=== PATIENT | female | born 1970 | race Caucasian/White ===

== ENCOUNTER → 2017-03-09 | Outpatient (CLI) | payer BC ==
--- NOTE | 2017-03-09 11:52 | REP ---
LEFT FINGERS, FOUR VIEWS: HISTORY: Middle finger ganglion. There is no acute fracture or dislocation. The joint spaces are normal in appearance. IMPRESSION: There is no acute fracture or dislocation. Signed by Easton Reddy MD 03/09/2017 12:10 P
[2017-03-09 14:32] LABS: MEAN CORPUSCULAR HEMOGLOBIN 32.1 pg (27.0-33.0); MEAN CORPUSCULAR HGB CONC 34.2 g/dl (32.0-36.5); MEAN CORPUSCULAR VOLUME 93.8 fl (80.0-96.0); RED CELL DISTRIBUTION WIDTH 12.3 % (11.5-14.5); WHITE BLOOD COUNT 6.3 K/mm3 (4.0-10.0)
[2017-03-09 14:45] LABS: ALBUMIN 3.7 GM/DL (3.2-5.2); ALKALINE PHOSPHATASE 104 U/L (45-117); ALT/SGPT 16 U/L (12-78); ANION GAP 7 MEQ/L (8-16); AST/SGOT 13 U/L (15-37); BILIRUBIN,TOTAL 0.5 MG/DL (0.2-1.0); BLOOD UREA NITROGEN 10 MG/DL (7-18); CALCIUM LEVEL 8.3 MG/DL (8.5-10.1); CARBON DIOXIDE LEVEL 30 MEQ/L (21-32); CHLORIDE LEVEL 103 MEQ/L (98-107); CHOLESTEROL LEVEL 183 MG/DL (<200); GLOMERULAR FILTRATION RATE > 60.0 (>58); GLUCOSE, FASTING 84 MG/DL (70-105); POTASSIUM SERUM 4.4 MEQ/L (3.5-5.1); SODIUM LEVEL 140 MEQ/L (136-145); TOTAL PROTEIN 7.8 GM/DL (6.4-8.2); TRIGLYCERIDES LEVEL 86 MG/DL (<150)
== END ==
LOC: M WUC 10:49
PROVIDERS: ATTEND Nurse Practitioner Family
DX: Z13.29 Encounter for screening for other suspected endocrine disorder (principal); Z13.220 Encounter for screening for lipoid disorders; Z13.0 Encounter for screening for diseases of the blood and blood-forming organs and certain disorders involving the immune mechanism; R68.89 Other general symptoms and signs; M67.442 Ganglion, left hand

== ENCOUNTER → 2017-07-12 | Outpatient (CLI) | payer BC | LOC: M WHC 08:13 | DX: Z12.31 Encounter for screening mammogram for malignant neoplasm of breast (principal) | CPT/HCPCS: G0202 ==

== ENCOUNTER → 2017-07-12 | Outpatient (REF) | payer BC | LOC: M SFHCWAGY 09:11 | DX: Z12.4 Encounter for screening for malignant neoplasm of cervix (principal) | CPT/HCPCS: G0123 ==

== ENCOUNTER → 2017-08-31 | Outpatient (CLI) | payer BC ==
[2017-09-02 11:12] LABS: TOTAL 25(OH) VITAMIN D 48.8 NG/ML (30.0-100.0)
== END ==
LOC: M WUC 11:23
DX: E55.9 Vitamin D deficiency, unspecified (principal)
CPT/HCPCS: 82306

== ENCOUNTER → 2017-12-05 | Outpatient (CLI) | payer BC ==
[2017-12-05 19:49] LABS: BASO % 0.3 % (0.0-1.0); EOS # 0.2 10^3/uL (0.0-0.50); EOS % 2.1 % (0.0-3.0); HEMATOCRIT 37.6 % (36.0-47.0); HEMOGLOBIN 12.6 g/dl (12.0-15.5); IMMATURE GRANULOCYTE % 0.2 % (0-3.0); LYMPH # 2.5 10^3/uL (1.5-4.5); LYMPH % 28.8 % (24.0-44.0); MEAN CORPUSCULAR HEMOGLOBIN 31.3 pg (27.0-33.0); MEAN CORPUSCULAR HGB CONC 33.5 g/dl (32.0-36.5); MEAN CORPUSCULAR VOLUME 93.5 fl (80.0-96.0); MONO # 0.6 10^3/uL (0.0-0.8); MONO % 7.2 % (0.0-5.0); NEUTROPHILS # 5.4 10^3/uL (1.8-7.7); NEUTROPHILS % 61.4 % (36.0-66.0); PLATELET COUNT, AUTOMATED 218 10^3/uL (150-450); RED BLOOD COUNT 4.02 10^6/uL (4.00-5.40); RED CELL DISTRIBUTION WIDTH 11.9 % (11.5-14.5); WHITE BLOOD COUNT 8.8 10^3/uL (4.0-10.0)
[2017-12-05 20:16] LABS: TOTAL 25(OH) VITAMIN D 84.5 NG/ML (30.0-100.0)
== END ==
LOC: M WUC 17:35
DX: R53.83 Other fatigue (principal)
CPT/HCPCS: 84443

== ENCOUNTER → 2018-04-25 | Outpatient (CLI) | payer BC ==
[~2018-04-25] MED LIST: LIDOCAINE 1% MDV 20ML VIAL As Ordered; TRIAMCINOLONE ACETONIDE SUSP 40 MG/ML VIAL (J3301) As Ordered
== END ==
LOC: M RADPRO 12:35
DX: S46.012A Strain of muscle(s) and tendon(s) of the rotator cuff of left shoulder, initial encounter (principal); Y92.89 Other specified places as the place of occurrence of the external cause; Y93.89 Activity, other specified; X58.XXXA Exposure to other specified factors, initial encounter; Y99.8 Other external cause status
CPT/HCPCS: 20550

== ENCOUNTER → 2018-07-18 | Outpatient (REF) | payer BC | LOC: M SFHCWAGY 09:21 | PROVIDERS: ATTEND Nurse Practitioner Women's Health | DX: Z12.4 Encounter for screening for malignant neoplasm of cervix (principal) ==

== ENCOUNTER → 2018-07-18 | Outpatient (CLI) | payer BC ==
--- NOTE | 2018-07-18 11:44 | REPMRS ---
Patient History The patient states she had a clinical breast exam in 08/02 No known family history of cancer. Benign lumpectomy of the left breast, 1999. Digital Woman Screen Mammo: July 18, 2018 - Exam #: [id number] Bilateral CC and MLO view(s) were taken. Technologist: Barb Shetty, Technologist Prior study comparison: July 12, 2017, digital woman screen mammo performed at [facility]. May 24, 2016, digital woman screen mammo performed at [facility]. February 04, 2015, digital woman screen mammo performed at [facility]. FINDINGS: The breast tissue is heterogeneously dense. This may lower the sensitivity of mammography. There is a moderate amount of heterogeneously dense fibroglandular tissue which is fairly symmetric. There is no interval development of dominant mass, architectural distortion, or clustered microcalcification typical of malignancy. There has been no change in the appearance of the mammogram from the prior studies. 3-D tomosynthesis shows no additional findings. Assessment: BI-RADS/ACR category 1 mammogram. Negative. Recommendation Routine screening mammogram of both breasts in 1 year (for women over age 40). This patient's Lifetime Breast Cancer RIsk is estimated at 8.5 %. This mammogram was interpreted with the aid of an FDA-approved computer-aided dectection system. Electronically Signed By: Natan Monroy MD 07/18/18 [id number]
== END ==
LOC: M WHC 09:06
PROVIDERS: ATTEND Nurse Practitioner Women's Health
DX: Z12.31 Encounter for screening mammogram for malignant neoplasm of breast (principal)

== ENCOUNTER → 2018-08-21 | Outpatient (REF) | payer BC | LOC: M LAB REF 12:00 | PROVIDERS: ATTEND Physician Assistant | DX: J00 Acute nasopharyngitis [common cold] (principal) ==

== ENCOUNTER → 2019-06-08 | Outpatient (CLI) | payer BC ==
--- NOTE | 2019-06-08 17:28 | REP ---
Clinical: Irregular menstrual cycles. Technique: Transabdominal pelvic ultrasound with color Doppler evaluation of the ovaries. Findings: Normal anteverted uterus measures 9.7 x 4.8 x 6.2 cm. Endometrial complex measures 12.0 mm thickness. No discrete uterine or endometrial abnormalities appreciated. The bilateral ovaries are normal in appearance and vascularity without torsion. Right ovary measures 4.4 x 1.9 x 3.5 cm (RI 0.54) and includes 2.9 cm presumed physiologic cyst. Left ovary measures 2.9 x 1.7 x 1.6 cm (RI 0.62). No pelvic free fluid or adnexal mass lesion. Bladder is unremarkable and measures approximately 10.1 x 5.9 x 8.7 cm. Impression: 1. Essentially normal examination. 2. A 2.9 cm cyst in the right ovary likely physiologic. Electronically Signed by Mitchell Galindo MD 06/08/2019 05:20 P
== END ==
LOC: M RAD 16:53
PROVIDERS: ATTEND Nurse Practitioner Women's Health
DX: N83.291 Other ovarian cyst, right side (principal); N92.6 Irregular menstruation, unspecified

== ENCOUNTER → 2019-07-20 | Outpatient (REF) | payer BC | LOC: M PLALAB 08:59 | PROVIDERS: ATTEND Nurse Practitioner Women's Health | DX: Z12.4 Encounter for screening for malignant neoplasm of cervix (principal) ==

== ENCOUNTER → 2019-07-20 | Outpatient (CLI) | payer BC ==
--- NOTE | 2019-07-20 10:12 | REPMRS ---
Patient History The patient states she had a clinical breast exam in 07/2019. No known family history of cancer. Benign lumpectomy of the left breast, 1999. No Hormone Replacement Therapy Digital Woman Screen Mammo: July 20, 2019 - Exam #: [id number] Bilateral CC and MLO view(s) were taken. Technologist: Damaris Mccarthy, Technologist Prior study comparison: July 18, 2018, bilateral digital woman screen mammo performed at [facility]. July 12, 2017, digital woman screen mammo performed at [facility]. May 24, 2016, digital woman screen mammo performed at [facility]. FINDINGS: The breast tissue is heterogeneously dense. This may lower the sensitivity of mammography. There is a moderate amount of heterogeneously dense fibroglandular tissue which is fairly symmetric. There is no interval development of dominant mass, architectural distortion, or grouped microcalcification typical of malignancy. There has been no change in the appearance of the mammogram from the prior studies. 3-D tomosynthesis shows no additional findings. Assessment: BI-RADS/ACR category 1 mammogram. Negative Mammogram. Recommendation Routine screening mammogram of both breasts in 1 year (for women over age 40). This patient's Lifetime Breast Cancer RIsk is estimated at 8.4 %. This mammogram was interpreted with the aid of an FDA-approved computer-aided dectection system. Electronically Signed By: Natan Monroy MD 07/20/19 [id number]
== END ==
LOC: M WHC 08:26
PROVIDERS: ATTEND Nurse Practitioner Women's Health
DX: Z12.31 Encounter for screening mammogram for malignant neoplasm of breast (principal)

== ENCOUNTER → 2019-09-25 | Outpatient (REF) | payer BC | LOC: M SFHCWAGY 16:56 → M SMT 16:56 | PROVIDERS: ATTEND Nurse Practitioner Women's Health | DX: N90.89 Other specified noninflammatory disorders of vulva and perineum (principal) ==

== ENCOUNTER → 2020-08-12 | Outpatient (CLI) | payer BC ==
--- NOTE | 2020-08-12 09:35 | REPMRS ---
Patient History The patient states she had a clinical breast exam in 07/2020. No known family history of cancer. Benign lumpectomy of the left breast, 1999. No Hormone Replacement Therapy Digital Woman Screen Mammo: August 12, 2020 - Exam #: [id number] Bilateral CC and MLO view(s) were taken. Technologist: Damaris Mccarthy, Technologist Prior study comparison: July 20, 2019, bilateral digital woman screen mammo performed at [facility]. July 18, 2018, bilateral digital woman screen mammo performed at [facility]. July 12, 2017, digital woman screen mammo performed at [facility]. FINDINGS: The breast tissue is heterogeneously dense. This may lower the sensitivity of mammography. The Volpara volumetric breast density category is: C. There is a moderate amount of heterogeneously dense fibroglandular tissue which is fairly symmetric. There is no interval development of dominant mass, architectural distortion, or grouped microcalcification typical of malignancy. There has been no change in the appearance of the mammogram from the prior studies. 3-D tomosynthesis shows no additional findings. Assessment: BI-RADS/ACR category 1 mammogram. Negative Mammogram. Recommendation Routine screening mammogram of both breasts in 1 year (for women over age 40). This patient's [facility] Lifetime Breast Cancer RIsk is estimated at 8.3 %. This mammogram was interpreted with the aid of an FDA-approved computer-aided dectection system. Electronically Signed By: Natan Monroy MD 08/12/20 0914
== END ==
LOC: M WHC 08:33
PROVIDERS: ATTEND Nurse Practitioner Women's Health
DX: Z12.31 Encounter for screening mammogram for malignant neoplasm of breast (principal)

== ENCOUNTER → 2020-08-12 | Outpatient (REF) | payer BC | LOC: M SFHCWAGY 13:35 | PROVIDERS: ATTEND Nurse Practitioner Women's Health | DX: Z12.4 Encounter for screening for malignant neoplasm of cervix (principal) ==

== ENCOUNTER → 2020-10-10 | Outpatient (REF) | payer BC ==
[2020-10-10 18:51] LABS: BASO % 0.5 % (0.0-1.0); EOS # 0.1 10^3/uL (0.0-0.5); EOS % 1.6 % (0.0-3.0); HEMATOCRIT 40.5 % (36.0-47.0); HEMOGLOBIN 13.4 g/dl (12.0-15.5); LYMPH # 1.9 10^3/uL (1.5-5.0); LYMPH % 30.6 % (24.0-44.0); MEAN CORPUSCULAR HEMOGLOBIN 31.5 pg (27.0-33.0); MEAN CORPUSCULAR HGB CONC 33.1 g/dl (32.0-36.5); MEAN CORPUSCULAR VOLUME 95.1 fl (80.0-96.0); MONO # 0.5 10^3/uL (0.0-0.8); MONO % 8.4 % (2.0-8.0); NEUTROPHILS # 3.6 10^3/uL (1.5-8.5); NEUTROPHILS % 58.6 % (36.0-66.0); PLATELET COUNT, AUTOMATED 232 10^3/uL (150-450); RED BLOOD COUNT 4.26 10^6/uL (4.00-5.40); WHITE BLOOD COUNT 6.2 10^3/uL (4.0-10.0)
[2020-10-10 19:22] LABS: ALBUMIN 3.8 GM/DL (3.2-5.2); ALT/SGPT 22 U/L (12-78); BILIRUBIN,TOTAL 0.4 MG/DL (0.2-1.0); BLOOD UREA NITROGEN 10 MG/DL (7-18); CALCIUM LEVEL 8.9 MG/DL (8.5-10.1); CARBON DIOXIDE LEVEL 29 MEQ/L (21-32); CHLORIDE LEVEL 103 MEQ/L (98-107); CHOLESTEROL LEVEL 175 MG/DL (<200); CHOLESTEROL RISK RATIO 2.777 (<5); CREATININE FOR GFR 0.59 MG/DL (0.55-1.30); GLOMERULAR FILTRATION RATE > 60.0 (>58); GLUCOSE, FASTING 99 MG/DL (70-100); HDL CHOLESTEROL 63 MG/DL (>40); LDL CHOLESTEROL 100 MG/DL (<100); NON-HDL-C 112 MG/DL; POTASSIUM SERUM 3.8 MEQ/L (3.5-5.1); SODIUM LEVEL 138 MEQ/L (136-145); TOTAL PROTEIN 7.8 GM/DL (6.4-8.2); TRIGLYCERIDES LEVEL 61 MG/DL (<150)
[2020-10-11 14:06] LABS: TOTAL 25(OH) VITAMIN D 19.2 NG/ML (30.0-100.0)
== END ==
LOC: M LAB REF 16:44
PROVIDERS: ATTEND Pediatrics
DX: Z00.00 Encounter for general adult medical examination without abnormal findings (principal); Z13.220 Encounter for screening for lipoid disorders; E55.9 Vitamin D deficiency, unspecified

== ENCOUNTER → 2021-07-18 | Outpatient (CLI) | payer BC ==
--- NOTE | 2021-07-18 15:57 | DEXAMM ---
INDICATION: MENOPAUSE. COMPARISON: None. TECHNIQUE: Bone density was measured using dual-energy x-ray absorptiometry (DEXA). FINDINGS: AP SPINE L1-L4 BMD 1.275 g/cm2 Young Adult T-Score 0.6 Age Matched Z-Score 1.0. LT FEMUR, TOTAL BMD 0.865 g/cm2 Young Adult T-Score -1.1 Age Matched Z-Score -0.7. LT NECK BMD 0.940 g/cm2 Young Adult T-Score -0.7 Age Matched Z-Score 0.1. RT FEMUR, TOTAL BMD 0.829 g/cm2 Young Adult T-Score -1.4 Age Matched Z-Score -1.0. RT NECK BMD 0.910 g/cm2 Young Adult T-Score -0.9 Age Matched Z-Score -0.1. IMPRESSION: There is normal bone density of the spine. There is low bone density of the left hip. There is low bone density of the right hip. Ten year probability of major osteoporotic fracture 3.8%, hip fracture 0.2%. FOLLOW-UP: Recommendation for the next bone density exam: 2 years. <Electronically signed by Jose Carlos Winston > 07/18/21 0276
== END ==
LOC: M WHC 12:35
PROVIDERS: ATTEND Pediatrics
DX: Z78.0 Asymptomatic menopausal state (principal)

== ENCOUNTER → 2021-11-08 | Outpatient (REF) | payer BC | LOC: M SFHCWAGY 17:25 | PROVIDERS: ATTEND Specialist | DX: Z12.4 Encounter for screening for malignant neoplasm of cervix (principal) | CPT/HCPCS: 87624; G0123 ==

== ENCOUNTER → 2021-11-08 | Outpatient (CLI) | payer BC | LOC: M WHC 09:37 | PROVIDERS: ATTEND Specialist | DX: Z12.31 Encounter for screening mammogram for malignant neoplasm of breast (principal) ==

== ENCOUNTER → 2022-12-04 | Outpatient (CLI) | payer BC | LOC: M WHC 15:18 | PROVIDERS: ATTEND Specialist | DX: Z12.31 Encounter for screening mammogram for malignant neoplasm of breast (principal) ==

== ENCOUNTER → 2022-12-18 | Outpatient (REF) | payer BC ==
[2022-12-18 13:38] LABS: THYROID STIMULATING HORMONE 1.443 uIU/ML (0.55-4.78)
[2022-12-18 13:40] LABS: FOLLICLE STIMULATING HORMONE 68.5 mIU/ML
[2022-12-18 13:41] LABS: ALKALINE PHOSPHATASE 115 U/L (46-116); ALT/SGPT 15 U/L (7.0-40); AST/SGOT 13 U/L (<34); BILIRUBIN,TOTAL 0.6 MG/DL (0.3-1.2); BLOOD UREA NITROGEN 15 MG/DL (9-23); CALCIUM LEVEL 9.5 MG/DL (8.5-10.1); CARBON DIOXIDE LEVEL 31 MMOL/L (20-31); CHLORIDE LEVEL 104 MMOL/L (98-107); CREATININE FOR GFR 0.67 MG/DL (0.55-1.30); GLOMERULAR FILTRATION RATE > 60.0 (>51); GLUCOSE, FASTING 92 MG/DL (60-100); LUTEINIZING HORMONE 45.5 mIU/ML; POTASSIUM SERUM 4.3 MMOL/L (3.5-5.1); SODIUM LEVEL 141 MMOL/L (136-145); TOTAL PROTEIN 7.6 G/DL (5.7-8.2)
== END ==
LOC: M LAB REF 12:31
PROVIDERS: ATTEND Pediatrics
DX: M85.80 Other specified disorders of bone density and structure, unspecified site (principal); N91.2 Amenorrhea, unspecified

== ENCOUNTER → 2023-07-19 | Outpatient (CLI) | payer BC | LOC: M WHC 09:22 | PROVIDERS: ATTEND Pediatrics | DX: M85.80 Other specified disorders of bone density and structure, unspecified site (principal) ==

== ENCOUNTER → 2024-01-28 | Outpatient (REF) | payer BC ==
[2024-01-28 18:00] LABS: CHOLESTEROL RISK RATIO 3.69 (<5); HDL CHOLESTEROL 50.3 MG/DL (>40); LDL CHOLESTEROL 101.1 MG/DL (<100); NON-HDL-C 135.7 MG/DL
[2024-01-28 18:03] LABS: THYROID STIMULATING HORMONE 1.91 uIU/ML (0.55-4.78)
[2024-01-28 18:04] LABS: TOTAL 25(OH) VITAMIN D 28.1 NG/ML (20.0-100.0)
== END ==
LOC: M LAB REF 16:39
PROVIDERS: ATTEND Pediatrics
DX: E66.9 Obesity, unspecified (principal); M85.80 Other specified disorders of bone density and structure, unspecified site; Z68.30 Body mass index [BMI] 30.0-30.9, adult

== ENCOUNTER → 2024-03-13 | Outpatient (REF) | payer BC ==
[2024-03-18 13:11] LABS: HPV APTIMA Not Detected (Not Detected)
== END ==
LOC: M PLALAB 13:49
PROVIDERS: ATTEND Specialist
DX: Z12.4 Encounter for screening for malignant neoplasm of cervix (principal)
CPT/HCPCS: 87624; G0123

== ENCOUNTER → 2024-03-13 | Outpatient (CLI) | payer BC | LOC: M WHC 13:48 | PROVIDERS: ATTEND Specialist | DX: Z12.31 Encounter for screening mammogram for malignant neoplasm of breast (principal) ==

== ENCOUNTER → 2024-09-21 | Outpatient (REF) | payer BC | LOC: M SFHCDERM 17:57 | PROVIDERS: ATTEND Physician Assistant | DX: C44.311 Basal cell carcinoma of skin of nose (principal) ==

== ENCOUNTER → 2024-09-28 | Outpatient (CLI) | payer BC | LOC: M WHC 09:02 | PROVIDERS: ATTEND Specialist | DX: N95.0 Postmenopausal bleeding (principal) ==

== ENCOUNTER 2025-03-19 08:43 | Day surgery (SDC) | payer BC ==
[~2025-03-19] VITALS: Ht 157.5 cm; Wt 74.2 kg
[2025-03-19] MEDS ORDERED: LIDOCAINE 2% 100 MG/5 ML SDV (FOR ANES.) As Ordered ONE (09:11)
[2025-03-19 10:04] VITALS: BP 122/59; TEMP 97.7; O2SAT 99
== END 2025-03-19 10:20 | disposition home or self-care (01) ==
LOC: M OPP 08:43
PROVIDERS: ATTEND Surgery
DX: Z12.11 Encounter for screening for malignant neoplasm of colon (principal); K63.5 Polyp of colon; K64.0 First degree hemorrhoids; Z88.2 Allergy status to sulfonamides